=== PATIENT | female | born 1990 | race Caucasian/White ===

== ENCOUNTER 2017-04-05 11:22 | Observation (INO) | payer MEDICAID, SELFPAY ==
[2017-04-05 11:52] VITALS: BMI 21.3
--- NOTE | 2017-04-05 12:21 | HP.PCM_ITS ---
Problem List (1) Opioid withdrawal Status: Acute (2) Benzodiazepine withdrawal Status: Acute (3) Poly-drug misuser Status: Chronic History of Present Illness Date of Admission: 04/05/17 Chief Complaint: Cramps in the lower extremities, opiate withdrawal The patient is a 27 year old female with no significant past medical history who comes in with complaints of cramps in lower extremity to be admitted under the [facility] program for opiate withdrawal. Patient last used heroine IV on 04/04/2017 and use benzodiazepine on 04/03/2017. Started using IV heroin when she was 16 years old. Has been multiple programs without success. She denies any fever or chills. Denies abdominal cramps but has cramps in the lower extremity. 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 Dyspnea Respiratory: Denies: Cough, Hemoptysis, Pleuritic Pain, Shortness of Breath, Shortness of breath at rest, Shortness of breath upon exertion, Sputum production Gastrointestinal: Denies: Abdominal Pain, Constipation, Hematemesis, Nausea, Vomiting Genitourinary: Denies: Dysuria, Frequency, Incontinence Musculoskeletal: Reports: Muscle pain - cramps in the legs. Denies: Joint Pain , Joint stiffness, Joint swelling, Joint Tenderness Skin: Denies: Rash, Wounds Neurological: Denies: Numbness, Tingling, Focal weakness Psychiatric: Denies: Anxiety, Depression, Homicidal Ideations, Suicidal Ideations Hematologic/ Lymphatic: Denies: Easy Bruising, Easy Bleeding VTE Information - Inpt Only VTE Present on Admission: No VTE Pharm Prophylaxis ordered?: No Patient Problems: Active and Suspected Problems Opioid withdrawal (Acute) Benzodiazepine withdrawal (Acute) Anxiety and depression (Acute) - Physical Exam General: Alert, Oriented x3, Cooperative, No apparent distress HEENT: Atraumatic, PERRLA, EOMI, Normocephalic Oral: Moist Mucosa Neck: Supple Lungs: Clear to auscultation, Normal air movement Cardiovascular: Regular rate, Regular Rhythm, Normal S1, Normal S2, No murmurs Abdomen: Bowel Sounds Present, Soft, Non Tender, Non-Distended, No Hepato- splenomegaly Extremities: No edema Skin: No rashes, No breakdown Musculoskeletal: No Tenderness to Palpation of Joints or Extremities Lymphatic: No Cervical, Supraclavicular, or Inguinal Adenopathy Neurological: Cranial nerves II-XII grossly intact, Neuro grossly intact Psych/Mental Status: Normal Affect, Appropriate Weight: 51.2 kg Body Mass Index (BMI) 21.3 Assessment/Plan Active and Suspected Problems Opioid withdrawal (Acute) Benzodiazepine withdrawal (Acute) Anxiety and depression (Acute) 27 y/o female with hx of chronic heroin use disorder, benzo use disorder, nicotine use comes in with complains of bilateral leg cramps with use of heroin 2 days ago 1. Opiate withdrawal in a known heroin user, undergoing medical stabilization under the [facility] program Plan: Admit patient to the [facility] floor, continue to monitor patient per protocol 2. Polysubstance use including benzodiazepines, nicotine, patient refuses nicotine patch 3. DVT Prophylaxis with early ambulation Code Visit Inpatient E&M: 03946 Init Hosp L2
--- NOTE | 2017-04-05 12:32 | NURSING ---
SPOKE WITH [facility] IN RX-THERE IS NOTHING IN ACCUDOSE FOR PT ADMINISTRATION-ASKED THEM TO EXPEDITE PROCESS BECAUSE PT IS SYMPTOMATIC
[2017-04-05] MEDS: Buprenorphine HCl 2 MG TAB.SUBL SL ×2 (12:43→21:24)
[2017-04-05] MEDS: chlordiazePOXIDE 25 MG Capsule PO ×3 (12:43→18:48)
[2017-04-05 13:28] LABS: Hematocrit 42.4 % (37-47); Hemoglobin 14.1 g/dl (12.0-15.0); Red Blood Count 4.62 M/mm3 (4.2-5.4); White Blood Count 6.2 K/mm3 (4.4-11.0)
[2017-04-05 13:29] LABS: Absolute Lymphocyte Count 1.24 X10^3/ul (0.83-4.51); Absolute Neutrophil Count 4.6 X10^3/uL (2.0-7.7); Basophil# 0.02 X10^3/uL; Basophil% 0.3 % (0-1); Eosinophil# 0.16 X10^3/uL; Eosinophils% 2.6 % (0-5); Lymphocyte # 1.24 X10^3/ul (4.0); Mean Corp Hgb Conc 33.3 g/gl (32-36); Mean Corpuscular Hgb 30.5 pg (27.0-32.0); Mean Corpuscular Volume 91.8 fL (81-99); Mean Platelet Vol. 9.1 fl (6.2-12.0); Monocyte# 0.19 X10^3/uL; Monocyte% 3.1 % (0-10); Neutrophil # 4.58 X10^3/uL (2.7-7.7); Neutrophil % 73.8 % (47-70); Platelet Count 181 K/mm3 (150-450); RBC Distribution Width CV 13.3 % (11.6-14.6); RBC Distribution Width SD 44.2 fl (35.1-43.9)
[2017-04-05 13:31] LABS: POSITIVE COUNT NO; POSITIVE DIFFERENTIAL NO; POSITIVE MORPHOLOGY NO
[2017-04-05 13:49] LABS: ALB/GLOB Ratio 0.9 RATIO (0.9-2.4); AST(SGOT) 33 U/L (15-37); Alanine Aminotransfer ALT/SGPT 39 U/L (12-78); Albumin, Serum 3.8 g/dL (3.4-5.0); Alkaline Phosphatase 106 U/L (45-117); Anion Gap 8 (5-15); BUN 6 mg/dL (7-18); BUN/Creat Ratio 8.5 RATIO (10-20); Calcium,Total 9.4 mg/dL (8.5-10.1); Chloride 109 mmol/L (98-107); EST Glomerular Filtration Rate 108 mL/min (>60); Est Glom Filt Rate - Afr Amer 130 mL/min (>60); Estimated Creatinine Clearance 92.71 ml/min; Globulin 4.3 g/dL (2.2-4.2); Glucose 117 mg/dL (70-110); Potassium 4.1 mmol/L (3.5-5.1); Protein, Total 8.1 g/dL (6.4-8.2); Sodium Level 142 mmol/L (136-145)
[2017-04-05 14:58] VITALS: BP 126/74; PULSE 93; RESP 18; TEMP 36.7
--- NOTE | 2017-04-05 15:51 | CHAPLAIN ---
Type of Pastoral Visit _x__ Initial Visit ___ Follow-up Visit ___ On-call Visit ___ General Patient Visit ___ Spiritual Assessment ___ Family Conference ___ Bereavement ___ Rapid Response ___ Code Blue ___ Other (describe below) Pastoral Care Referral From _x__ Patient ___ Family ___ Nurse ___ Physician ___ Gamma Facilities Operator ___ Network Relations Consultant ___ Other (describe below) Sacrament/Intervention _x__ Active listening ___ Anointing ___ Pentecostal ___ Bereavement ___ Communion ___ Nikky exploration ___ _x__ Life review _x__ Prayer ___ Reconciliation ___ Sacrament of Sick _x__ Supportive presence ___ Wedding ___ Other (describe below) Pastoral Comments patient support is her boyfriend (who is in assisted) and his family; pt is not from this area and her mother is and father is inactive in her life; patient wanted paper to write a letter to her boyfriend; brought her paper and envelopes
[2017-04-05] MEDS: Methocarbamol 750 MG Tablet PO (16:28)
[2017-04-05 16:33] LABS: Mucous, Urine 0 SEEN /hpf (<or=2+); Red Blood Cells-Urine 0 SEEN /hpf (0-5); White Blood Cells 0 SEEN /hpf (0-5)
[2017-04-05 16:36] LABS: Color, Urine Yellow (Yellow); Glucose, Dipstick Normal (Normal); Ketone-Dipstick Negative (Negative); Leukocyte Esterase-Dipstick Negative /ul (Negative); Nitrite-Dipstick Negative (Negative); Occult Blood-Urine Negative /ul (Negative); Protein-Dipstick Negative (Negative); Urine Bilirubin Dipstick Negative (Negative); Urine Clarity Clear (Clear); Urine Urobilinogen Normal (Normal)
[2017-04-05 16:43] VITALS: BP 101/69; PULSE 98; RESP 20; TEMP 36.7; TEMP 37.1; O2SAT 100
[2017-04-05 16:46] LABS: Bacteria 1+ /hpf (None Seen); Squamous Epithelial Cells - UA 5-10 SEEN /hpf (5-10)
[2017-04-05 18:00] VITALS: BP 132/77; PULSE 99; RESP 20; TEMP 36.7; O2SAT 99
[2017-04-05] MEDS: QUEtiapine 25 MG Tablet PO (18:49)
[2017-04-05 21:07] VITALS: BP 93/59; PULSE 87; RESP 18; TEMP 36.7
[2017-04-05 21:10] VITALS: O2SAT 98
[2017-04-05] MEDS: traZODone 50 MG Tablet PO (21:19)
[2017-04-05] MEDS: cloNIDine HCl 0.1 MG Tablet PO (21:20)
[2017-04-05] MEDS: Pramipexole Di-HCl 0.25 MG Tablet PO (21:21)
[2017-04-06] MEDS: Acetaminophen 325 MG Tablet 650 MG PO (00:50)
[2017-04-06] MEDS: chlordiazePOXIDE 25 MG Capsule PO ×4 (00:51→23:02)
[2017-04-06 02:00] VITALS: BP 82/54; PULSE 69; RESP 16; TEMP 36.4; O2SAT 99
[2017-04-06] MEDS: Buprenorphine HCl 2 MG TAB.SUBL SL ×3 (05:01→21:12)
[2017-04-06 06:00] VITALS: BP 82/49; PULSE 71; RESP 18; TEMP 36.4; O2SAT 99
[2017-04-06 08:02] LABS: Absolute Lymphocyte Count 2.25 X10^3/ul (0.83-4.51); Absolute Neutrophil Count 4.2 X10^3/uL (2.0-7.7); Basophil# 0.04 X10^3/uL; Basophil% 0.5 % (0-1); Eosinophil# 0.23 X10^3/uL; Eosinophils% 3.2 % (0-5); Lymphocyte # 2.25 X10^3/ul (4.0); Lymphocyte % 30.9 % (19-41); Mean Corp Hgb Conc 34.2 g/gl (32-36); Mean Corpuscular Hgb 31.6 pg (27.0-32.0); Mean Corpuscular Volume 92.2 fL (81-99); Mean Platelet Vol. 9.2 fl (6.2-12.0); Monocyte# 0.52 X10^3/uL; Monocyte% 7.1 % (0-10); Neutrophil # 4.23 X10^3/uL (2.7-7.7); Neutrophil % 58.2 % (47-70); Platelet Count 190 K/mm3 (150-450); RBC Distribution Width CV 13.2 % (11.6-14.6); RBC Distribution Width SD 43.8 fl (35.1-43.9); Red Blood Count 4.12 M/mm3 (4.2-5.4); White Blood Count 7.3 K/mm3 (4.4-11.0)
[2017-04-06 08:09] LABS: POSITIVE COUNT NO; POSITIVE DIFFERENTIAL NO; POSITIVE MORPHOLOGY NO
[2017-04-06 08:18] LABS: Anion Gap 6 (5-15); BUN 10 mg/dL (7-18); BUN/Creat Ratio 15.5 RATIO (10-20); Calcium,Total 8.9 mg/dL (8.5-10.1); Chloride 108 mmol/L (98-107); Creatinine, Serum 0.64 mg/dL (0.55-1.02); EST Glomerular Filtration Rate 119 mL/min (>60); Est Glom Filt Rate - Afr Amer 144 mL/min (>60); Glucose 97 mg/dL (70-110); Potassium 3.7 mmol/L (3.5-5.1); Sodium Level 140 mmol/L (136-145)
[2017-04-06 10:00] VITALS: BP 89/57; PULSE 88; RESP 18; TEMP 36.6
--- NOTE | 2017-04-06 11:40 | PCM.PN.HOSP ---
Patient Problems: Active and Suspected Problems Opioid withdrawal (Acute) Benzodiazepine withdrawal (Acute) Anxiety and depression (Acute) Subjective: Patient was seen and examined. No new complains. No more having cramps. Objective: Physical Exam General: Alert, Oriented x3, Cooperative, No apparent distress HEENT: Atraumatic, PERRLA, EOMI, Normocephalic Oral: Moist Mucosa Neck: Supple Lungs: Clear to auscultation, Normal air movement Cardiovascular: Regular rate, Regular Rhythm, Normal S1, Normal S2, No murmurs Abdomen: Bowel Sounds Present, Soft, Non Tender, Non-Distended, No Hepato-splenomegaly Extremities: No edema Skin: No rashes, No breakdown Musculoskeletal: No Tenderness to Palpation of Joints or Extremities Lymphatic: No Cervical, Supraclavicular, or Inguinal Adenopathy Neurological: Cranial nerves II-XII grossly intact, Neuro grossly intact Psych/Mental Status: Normal Affect, Appropriate Vitals/I&O's: Vital Signs Temp Pulse Resp BP Pulse Ox 97.6 F L 71 18 82/49 L 99 04/06/17 06:00 04/06/17 06:00 04/06/17 06:00 04/06/17 06:00 04/06/17 06:00 Oxygen Delivery Method Room Air Weight: 51.2 kg Body Mass Index (BMI) 21.3 Intake and Output for Last 24 Hours 04/04/17 04/05/17 04/06/17 23:59 23:59 23:59 Intake Total 800 / 800 Balance 800 / 800 Laboratory Results 04/05/17 13:00: WBC 6.2, RBC 4.62, Hgb 14.1, Hct 42.4, MCV 91.8, MCH 30.5, MCHC 33.3, RDW 13.3, RDW Differential 44.2 H, Plt Count 181, MPV 9.1, Immature Gran % (Auto) 0.200, Neut % (Auto) 73.8 H, Lymph % (Auto) 20.0, [place] % (Auto) 3.1, Eos % (Auto) 2.6, Baso % (Auto) 0.3, Absolute Neuts (auto) 4.6, Absolute Lymphs (auto) 1.24, Total Counted Not Reportable 04/05/17 13:00: Sodium 142, Potassium 4.1, Chloride 109 H, Carbon Dioxide 25.0, Anion Gap 8, BUN 6 L, Creatinine 0.70, Estim Creat Clear Calc 92.71, Est GFR (MDRD) Af Amer 130, Est GFR (MDRD) Non-Af 108, BUN/Creatinine Ratio 8.5 L, Glucose 117 H, Calcium 9.4, Total Bilirubin 0.40, AST 33, ALT 39, Alkaline Phosphatase 106, Total Protein 8.1, Albumin 3.8, Globulin 4.3 H, Albumin/Globulin Ratio 0.9 04/05/17 16:01: Urine Color Yellow, Urine Clarity Clear, Urine pH 8.0, Ur Specific [place] 1.010, Urine Protein Negative, Urine Glucose (UA) Normal, Urine Ketones Negative, Urine Occult Blood Negative, Urine Nitrite Negative, Urine Bilirubin Negative, Urine Urobilinogen Normal, Ur Leukocyte Esterase Negative, Urine RBC 0 SEEN, Urine WBC 0 SEEN, Ur Squamous Epith Cells 5-10 SEEN, Urine Bacteria 1+, Urine Mucus 0 SEEN 04/06/17 07:30: WBC 7.3, RBC 4.12 L, Hgb 13.0, Hct 38.0, MCV 92.2, MCH 31.6, MCHC 34.2, RDW 13.2, RDW Differential 43.8, Plt Count 190, MPV 9.2, Immature Gran % (Auto) 0.100, Neut % (Auto) 58.2, Lymph % (Auto) 30.9, [place] % (Auto) 7.1, Eos % (Auto) 3.2, Baso % (Auto) 0.5, Absolute Neuts (auto) 4.2, Absolute Lymphs (auto) 2.25, Total Counted Not Reportable 04/06/17 07:30: Sodium 140, Potassium 3.7, Chloride 108 H, Carbon Dioxide 26.0, Anion Gap 6, BUN 10, Creatinine 0.64, Estim Creat Clear Calc 101.40, Est GFR (MDRD) Af Amer 144, Est GFR (MDRD) Non-Af 119, BUN/Creatinine Ratio 15.5, Glucose 97, Calcium 8.9 Current Medications Acetaminophen (Tylenol) 650 mg PO Q4H PRN PRN PRN Reason: PAIN Last Admin: 04/06/17 00:50 Dose: 650 mg Buprenorphine HCl (Buprenorphine Hcl) 4 mg SL Q8H [facility] PRN Reason: Taper Stop: 04/08/17 16:44 Last Admin: 04/06/17 05:01 Dose: 4 mg Chlordiazepoxide (Librium) 25 mg PO Q6H PRN PRN PRN Reason: Anxiety Score 2-3/3 Last Admin: 04/05/17 16:28 Dose: 25 mg Chlordiazepoxide (Librium) 50 mg PO Q8H [facility] PRN Reason: Taper Stop: 04/08/17 14:44 Last Admin: 04/06/17 06:35 Dose: 50 mg Clonidine (Catapres) 0.1 mg PO Q2H PRN PRN PRN Reason: Hot/Cold Sweats or Anxiety Last Admin: 04/05/17 21:20 Dose: 0.1 mg Dicyclomine HCl (Bentyl) 20 mg PO Q6H PRN PRN PRN Reason: Abdomnial Discomfort Hydroxyzine HCl (Vistaril) 50 mg IM Q6H PRN PRN PRN Reason: Breakthrough Anxiety Hydroxyzine Pamoate (Vistaril) 50 mg PO Q6H PRN PRN PRN Reason: Mild Anxiety (score 1/3) Magnesium Hydroxide (Milk Of Magnesia) 30 ml PO DAILY PRN PRN PRN Reason: Constipation Methocarbamol (Methocarbamol) 750 mg PO Q6H PRN PRN PRN Reason: Muscle Aches Last Admin: 04/05/17 16:28 Dose: 750 mg Nicotine (Nicoderm Cq (Pbkc)) 21 mg TRANSDERM. DAILY [facility] Last Admin: 04/05/17 21:04 Dose: Not Given Nutritional Formula (Lactose Free) (Ensure Enlive) 120 ml PO 4X/DAY [facility] Last Admin: 04/05/17 21:20 Dose: Not Given Pramipexole Dihydrochloride (Mirapex) 0.25 mg PO Q12H PRN PRN PRN Reason: Restless Legs Last Admin: 04/05/17 21:21 Dose: 0.25 mg Psyllium Hydrophilic Mucilloid (Metamucil) 1 packet PO DAILY PRN PRN PRN Reason: CONSTIPATION Quetiapine Fumarate (Seroquel) 100 mg PO QHS [facility] Senna/Docusate Sodium (Senokot-S, Agnieszka-Colace) 2 tablet PO BID [facility] Last Admin: 04/05/17 21:20 Dose: Not Given Trazodone HCl (Desyrel) 50 mg PO QHS [facility] Last Admin: 04/05/17 21:19 Dose: 50 mg Assessment/Plan Active and Suspected Problems Opioid withdrawal (Acute) Benzodiazepine withdrawal (Acute) Anxiety and depression (Acute) 27 y/o female with hx of chronic heroin use disorder, benzo use disorder, nicotine use comes in with complains of bilateral leg cramps with use of heroin 2 days ago 1. Opiate withdrawal in a known heroin user, undergoing medical stabilization under the [facility] program, stable vitals. 2. Polysubstance use including benzodiazepines, nicotine, on nicotine patch 3. DVT Prophylaxis with early ambulation Code Visit Inpatient E&M: 12713 Subs Hosp L2
--- NOTE | 2017-04-06 11:48 | PN_ITS ---
Patient Problems: Active and Suspected Problems Opioid withdrawal (Acute) Benzodiazepine withdrawal (Acute) Anxiety and depression (Acute) Subjective: Patient was seen and examined. No new complains. No more having cramps. Objective: Physical Exam General: Alert, Oriented x3, Cooperative, No apparent distress HEENT: Atraumatic, PERRLA, EOMI, Normocephalic Oral: Moist Mucosa Neck: Supple Lungs: Clear to auscultation, Normal air movement Cardiovascular: Regular rate, Regular Rhythm, Normal S1, Normal S2, No murmurs Abdomen: Bowel Sounds Present, Soft, Non Tender, Non-Distended, No Hepato- splenomegaly Extremities: No edema Skin: No rashes, No breakdown Musculoskeletal: No Tenderness to Palpation of Joints or Extremities Lymphatic: No Cervical, Supraclavicular, or Inguinal Adenopathy Neurological: Cranial nerves II-XII grossly intact, Neuro grossly intact Psych/Mental Status: Normal Affect, Appropriate Vitals/I&O's: Vital Signs Temp Pulse Resp BP Pulse Ox 97.6 F L 71 18 82/49 L 99 04/06/17 06:00 04/06/17 06:00 04/06/17 06:00 04/06/17 06:00 04/06/17 06:00 Oxygen Delivery Method Room Air Weight: 51.2 kg Body Mass Index (BMI) 21.3 Intake and Output for Last 24 Hours 04/04/17 04/05/17 04/06/17 23:59 23:59 23:59 Intake Total 800 / 800 Balance 800 / 800 Laboratory Results 04/05/17 13:00: WBC 6.2, RBC 4.62, Hgb 14.1, Hct 42.4, MCV 91.8, MCH 30.5, MCHC 33.3, RDW 13.3, RDW Differential 44.2 H, Plt Count 181, MPV 9.1, Immature Gran % (Auto) 0.200, Neut % (Auto) 73.8 H, Lymph % (Auto) 20.0, [place] % (Auto) 3.1, Eos % (Auto) 2.6, Baso % (Auto) 0.3, Absolute Neuts (auto) 4.6, Absolute Lymphs (auto) 1.24, Total Counted Not Reportable 04/05/17 13:00: Sodium 142, Potassium 4.1, Chloride 109 H, Carbon Dioxide 25.0, Anion Gap 8, BUN 6 L, Creatinine 0.70, Estim Creat Clear Calc 92.71, Est GFR ( MDRD) Af Amer 130, Est GFR (MDRD) Non-Af 108, BUN/Creatinine Ratio 8.5 L, Glucose 117 H, Calcium 9.4, Total Bilirubin 0.40, AST 33, ALT 39, Alkaline Phosphatase 106, Total Protein 8.1, Albumin 3.8, Globulin 4.3 H, Albumin/ Globulin Ratio 0.9 04/05/17 16:01: Urine Color Yellow, Urine Clarity Clear, Urine pH 8.0, Ur Specific [place] 1.010, Urine Protein Negative, Urine Glucose (UA) Normal, Urine Ketones Negative, Urine Occult Blood Negative, Urine Nitrite Negative, Urine Bilirubin Negative, Urine Urobilinogen Normal, Ur Leukocyte Esterase Negative, Urine RBC 0 SEEN, Urine WBC 0 SEEN, Ur Squamous Epith Cells 5-10 SEEN , Urine Bacteria 1+, Urine Mucus 0 SEEN 04/06/17 07:30: WBC 7.3, RBC 4.12 L, Hgb 13.0, Hct 38.0, MCV 92.2, MCH 31.6, MCHC 34.2, RDW 13.2, RDW Differential 43.8, Plt Count 190, MPV 9.2, Immature Gran % (Auto) 0.100, Neut % (Auto) 58.2, Lymph % (Auto) 30.9, [place] % (Auto) 7.1 , Eos % (Auto) 3.2, Baso % (Auto) 0.5, Absolute Neuts (auto) 4.2, Absolute Lymphs (auto) 2.25, Total Counted Not Reportable 04/06/17 07:30: Sodium 140, Potassium 3.7, Chloride 108 H, Carbon Dioxide 26.0, Anion Gap 6, BUN 10, Creatinine 0.64, Estim Creat Clear Calc 101.40, Est GFR ( MDRD) Af Amer 144, Est GFR (MDRD) Non-Af 119, BUN/Creatinine Ratio 15.5, Glucose 97, Calcium 8.9 Current Medications Acetaminophen (Tylenol) 650 mg PO Q4H PRN PRN PRN Reason: PAIN Last Admin: 04/06/17 00:50 Dose: 650 mg Buprenorphine HCl (Buprenorphine Hcl) 4 mg SL Q8H [facility] PRN Reason: Taper Stop: 04/08/17 16:44 Last Admin: 04/06/17 05:01 Dose: 4 mg Chlordiazepoxide (Librium) 25 mg PO Q6H PRN PRN PRN Reason: Anxiety Score 2-3/3 Last Admin: 04/05/17 16:28 Dose: 25 mg Chlordiazepoxide (Librium) 50 mg PO Q8H [facility] PRN Reason: Taper Stop: 04/08/17 14:44 Last Admin: 04/06/17 06:35 Dose: 50 mg Clonidine (Catapres) 0.1 mg PO Q2H PRN PRN PRN Reason: Hot/Cold Sweats or Anxiety Last Admin: 04/05/17 21:20 Dose: 0.1 mg Dicyclomine HCl (Bentyl) 20 mg PO Q6H PRN PRN PRN Reason: Abdomnial Discomfort Hydroxyzine HCl (Vistaril) 50 mg IM Q6H PRN PRN PRN Reason: Breakthrough Anxiety Hydroxyzine Pamoate (Vistaril) 50 mg PO Q6H PRN PRN PRN Reason: Mild Anxiety (score 1/3) Magnesium Hydroxide (Milk Of Magnesia) 30 ml PO DAILY PRN PRN PRN Reason: Constipation Methocarbamol (Methocarbamol) 750 mg PO Q6H PRN PRN PRN Reason: Muscle Aches Last Admin: 04/05/17 16:28 Dose: 750 mg Nicotine (Nicoderm Cq (Pbkc)) 21 mg TRANSDERM. DAILY [facility] Last Admin: 04/05/17 21:04 Dose: Not Given Nutritional Formula (Lactose Free) (Ensure Enlive) 120 ml PO 4X/DAY [facility] Last Admin: 04/05/17 21:20 Dose: Not Given Pramipexole Dihydrochloride (Mirapex) 0.25 mg PO Q12H PRN PRN PRN Reason: Restless Legs Last Admin: 04/05/17 21:21 Dose: 0.25 mg Psyllium Hydrophilic Mucilloid (Metamucil) 1 packet PO DAILY PRN PRN PRN Reason: CONSTIPATION Quetiapine Fumarate (Seroquel) 100 mg PO QHS [facility] Senna/Docusate Sodium (Senokot-S, Agnieszka-Colace) 2 tablet PO BID [facility] Last Admin: 04/05/17 21:20 Dose: Not Given Trazodone HCl (Desyrel) 50 mg PO QHS [facility] Last Admin: 04/05/17 21:19 Dose: 50 mg Assessment/Plan Active and Suspected Problems Opioid withdrawal (Acute) Benzodiazepine withdrawal (Acute) Anxiety and depression (Acute) 27 y/o female with hx of chronic heroin use disorder, benzo use disorder, nicotine use comes in with complains of bilateral leg cramps with use of heroin 2 days ago 1. Opiate withdrawal in a known heroin user, undergoing medical stabilization under the [facility] program, stable vitals. 2. Polysubstance use including benzodiazepines, nicotine, on nicotine patch 3. DVT Prophylaxis with early ambulation Code Visit Inpatient E&M: 40306 Subs Hosp L2
[2017-04-06] MEDS: Senna/Docusate Sodium 1 Tablet 2 TABLET PO (12:21)
[2017-04-06 14:00] VITALS: BP 92/62; PULSE 80; RESP 18; TEMP 36.3
[2017-04-06] MEDS: QUEtiapine 100 MG Tablet PO (21:13)
[2017-04-06] MEDS: Pramipexole Di-HCl 0.25 MG Tablet PO (21:17)
[2017-04-06 21:21] VITALS: BP 98/54; PULSE 73; RESP 16; TEMP 36.7
[2017-04-07] MEDS: Buprenorphine HCl 2 MG TAB.SUBL SL ×2 (05:52→17:21)
[2017-04-07] MEDS: chlordiazePOXIDE 25 MG Capsule PO ×3 (05:53→21:48)
[2017-04-07 05:56] VITALS: BP 90/53; PULSE 69; RESP 16; TEMP 36.6
--- NOTE | 2017-04-07 08:06 | PCM.PN.HOSP ---
Patient Problems: Active and Suspected Problems Opioid withdrawal (Acute) Benzodiazepine withdrawal (Acute) Anxiety and depression (Acute) Subjective: Patient was seen and examined. No new complaints. No acute events overnight Objective: Physical Exam General: Alert, Oriented x3, Cooperative, No apparent distress HEENT: Atraumatic, PERRLA, EOMI, Normocephalic Oral: Moist Mucosa Neck: Supple Lungs: Clear to auscultation, Normal air movement Cardiovascular: Regular rate, Regular Rhythm, Normal S1, Normal S2, No murmurs Abdomen: Bowel Sounds Present, Soft, Non Tender, Non-Distended, No Hepato-splenomegaly Extremities: No edema Skin: No rashes, No breakdown Musculoskeletal: No Tenderness to Palpation of Joints or Extremities Lymphatic: No Cervical, Supraclavicular, or Inguinal Adenopathy Neurological: Cranial nerves II-XII grossly intact, Neuro grossly intact Psych/Mental Status: Normal Affect, Appropriate Vitals/I&O's: Vital Signs Temp Pulse Resp BP Pulse Ox 97.8 F 69 16 90/53 L 99 04/07/17 05:56 04/07/17 05:56 04/07/17 05:56 04/07/17 05:56 04/06/17 06:00 Oxygen Delivery Method Room Air Weight: 51.2 kg Body Mass Index (BMI) 21.3 Intake and Output for Last 24 Hours 04/05/17 04/06/17 04/07/17 23:59 23:59 23:59 Intake Total 800 / 800 Balance 800 / 800 Laboratory Results 04/06/17 07:30: WBC 7.3, RBC 4.12 L, Hgb 13.0, Hct 38.0, MCV 92.2, MCH 31.6, MCHC 34.2, RDW 13.2, RDW Differential 43.8, Plt Count 190, MPV 9.2, Immature Gran % (Auto) 0.100, Neut % (Auto) 58.2, Lymph % (Auto) 30.9, [place] % (Auto) 7.1, Eos % (Auto) 3.2, Baso % (Auto) 0.5, Absolute Neuts (auto) 4.2, Absolute Lymphs (auto) 2.25, Total Counted Not Reportable 04/06/17 07:30: Sodium 140, Potassium 3.7, Chloride 108 H, Carbon Dioxide 26.0, Anion Gap 6, BUN 10, Creatinine 0.64, Estim Creat Clear Calc 101.40, Est GFR (MDRD) Af Amer 144, Est GFR (MDRD) Non-Af 119, BUN/Creatinine Ratio 15.5, Glucose 97, Calcium 8.9 Current Medications Acetaminophen (Tylenol) 650 mg PO Q4H PRN PRN PRN Reason: PAIN Last Admin: 04/06/17 00:50 Dose: 650 mg Buprenorphine HCl (Buprenorphine Hcl) 2 mg SL Q12H [facility] PRN Reason: Taper Stop: 04/08/17 16:44 Last Admin: 04/07/17 05:52 Dose: 2 mg Chlordiazepoxide (Librium) 25 mg PO Q6H PRN PRN PRN Reason: Anxiety Score 2-3/3 Last Admin: 04/05/17 16:28 Dose: 25 mg Chlordiazepoxide (Librium) 50 mg PO Q8H [facility] PRN Reason: Taper Stop: 04/08/17 14:44 Last Admin: 04/07/17 05:53 Dose: 50 mg Clonidine (Catapres) 0.1 mg PO Q2H PRN PRN PRN Reason: Hot/Cold Sweats or Anxiety Last Admin: 04/05/17 21:20 Dose: 0.1 mg Dicyclomine HCl (Bentyl) 20 mg PO Q6H PRN PRN PRN Reason: Abdomnial Discomfort Hydroxyzine HCl (Vistaril) 50 mg IM Q6H PRN PRN PRN Reason: Breakthrough Anxiety Hydroxyzine Pamoate (Vistaril) 50 mg PO Q6H PRN PRN PRN Reason: Mild Anxiety (score 1/3) Last Admin: 04/06/17 12:22 Dose: 50 mg Magnesium Hydroxide (Milk Of Magnesia) 30 ml PO DAILY PRN PRN PRN Reason: Constipation Methocarbamol (Methocarbamol) 750 mg PO Q6H PRN PRN PRN Reason: Muscle Aches Last Admin: 04/05/17 16:28 Dose: 750 mg Nicotine (Nicoderm Cq (Pbkc)) 21 mg TRANSDERM. DAILY [facility] Last Admin: 04/06/17 12:21 Dose: Not Given Nutritional Formula (Lactose Free) (Ensure Enlive) 120 ml PO 4X/DAY [facility] Last Admin: 04/06/17 21:12 Dose: Not Given Pramipexole Dihydrochloride (Mirapex) 0.25 mg PO Q12H PRN PRN PRN Reason: Restless Legs Last Admin: 04/06/17 21:17 Dose: 0.25 mg Psyllium Hydrophilic Mucilloid (Metamucil) 1 packet PO DAILY PRN PRN PRN Reason: CONSTIPATION Quetiapine Fumarate (Seroquel) 100 mg PO QHS [facility] Last Admin: 04/06/17 21:13 Dose: 100 mg Senna/Docusate Sodium (Senokot-S, Agnieszka-Colace) 2 tablet PO BID [facility] Last Admin: 04/06/17 21:12 Dose: Not Given Trazodone HCl (Desyrel) 50 mg PO QHS [facility] Last Admin: 04/06/17 21:12 Dose: Not Given Assessment/Plan Active and Suspected Problems Opioid withdrawal (Acute) Benzodiazepine withdrawal (Acute) Anxiety and depression (Acute) 27 y/o female with hx of chronic heroin use disorder, benzo use disorder, nicotine use comes in with complains of bilateral leg cramps, last use of heroin 2 days prior to admission, being managed under [facility] protocol. 1. Opiate withdrawal in a known heroin user, undergoing medical stabilization under the [facility] program, stable vitals. 2. Polysubstance use including benzodiazepines, nicotine, on nicotine patch 3. DVT Prophylaxis with early ambulation Code Visit Inpatient E&M: 13265 Subs Hosp L2
[2017-04-07 09:30] VITALS: BP 88/46; PULSE 71; RESP 16; TEMP 36.4; O2SAT 99
--- NOTE | 2017-04-07 12:38 | NURSING ---
MESSAGE LEFT WITH NEW VISIONS REGARDING PATIENTS CONCERN WITH DISCHARGE PLANS. PATIENT PLANNING ON GOING TO [place] FOR INPATIENT THERAPY AT DISCHARGE. WILL NEED TRANSPORTATION TO [facility].
[2017-04-07] MEDS: Pramipexole Di-HCl 0.25 MG Tablet PO (14:35)
[2017-04-07 14:40] VITALS: BP 95/68; PULSE 91; RESP 18; TEMP 36.8
[2017-04-07 17:25] VITALS: BP 101/70; PULSE 81; RESP 18; TEMP 36.6
[2017-04-07] MEDS: QUEtiapine 100 MG Tablet PO (21:50)
[2017-04-07 21:55] VITALS: BP 96/74; PULSE 99; RESP 16; TEMP 36.6
[2017-04-08 06:00] VITALS: BP 87/56; PULSE 68; RESP 15; TEMP 36.4
[2017-04-08] MEDS: Buprenorphine HCl 2 MG TAB.SUBL SL (06:10)
[2017-04-08] MEDS: chlordiazePOXIDE 25 MG Capsule PO (06:11)
[2017-04-08] MEDS: Pramipexole Di-HCl 0.25 MG Tablet PO (06:15)
[2017-04-08 08:55] VITALS: BP 98/63; PULSE 90; RESP 18; TEMP 36.7
[2017-04-08 08:56] VITALS: PULSE 90
--- NOTE | 2017-04-08 09:41 | NURSING ---
Patient was out to nurses' station requesting to be d/c'ed and requesting for this RN to call Jennifer and schedule her a ride to her home [address] [place] [address]. She states she attempted to call in and they notified her she must have an RN call. This RN called and spoke with Shmuel at this time and was given a confirmation number: [phone]. Notified her that doctor states that she plans to d/c her around 11am. This RN gave cell phone number here at work and requested call when ride arrives.
--- NOTE | 2017-04-08 10:21 | PCM.DC ---
- Discharge Diagnoses Current Active Problems: Current Active and Chronic Problems Opioid withdrawal (Acute) Benzodiazepine withdrawal (Acute) Anxiety and depression (Acute) Poly-drug misuser (Chronic) You will use the following diet at home:: No restrictions Your food should be the consistency of: Regular Your liquids should be the consistency of: Regular/Thin Discharge Activity: Return to Normal Activity Call your doctor if you observe: Fever of 101 or Higher, Shortness of breath, - - cough, nausea, diarrhea Additional Instructions: Safe travels and Good luck in your ongoing effort to stay clean. Allergies/Adverse Reactions: Allergies No Known Allergies Allergy (Verified 04/05/17 12:31) Medications to take at Discharge Quetiapine Fumarate [Seroquel] 100 mg PO QHS #30 tab 04/08/17 The following prescriptions were given: Quetiapine Fumarate [Seroquel] 100 mg PO QHS #30 tab Primary Care Physician: Care Physician,No Primary [Primary Care Provider] - Proposed Discharge Date: 04/08/17
--- NOTE | 2017-04-08 10:31 | PCM.DC.SUM ---
Discharge Date and Diagnosis - Problem List Patient Problems: Active and Suspected Problems Opioid withdrawal (Acute) Benzodiazepine withdrawal (Acute) Anxiety and depression (Acute) Date of Admission: 04/05/17 Date of Discharge: 04/08/17 - Primary Discharge Diagnosis Active and Suspected Problems Opioid withdrawal (Acute) Benzodiazepine withdrawal (Acute) - Secondary Discharge Diagnosis Chronic Problems Insomnia (Chronic) Nicotine dependence (Chronic) Poly-drug misuser (Chronic) Anxiety and depression (Acute) Hospital Course and Treatment Imaging Results: Laboratory Tests 04/05/17 04/05/17 04/05/17 13:00 13:00 16:01 WBC 6.2 RBC 4.62 Hgb 14.1 Hct 42.4 MCV 91.8 MCH 30.5 MCHC 33.3 RDW 13.3 RDW Differential 44.2 H Plt Count 181 MPV 9.1 Immature Gran % (Auto) 0.200 Neut % (Auto) 73.8 H Lymph % (Auto) 20.0 [place] % (Auto) 3.1 Eos % (Auto) 2.6 Baso % (Auto) 0.3 Absolute Neuts (auto) 4.6 Absolute Lymphs (auto) 1.24 Total Counted Not Reportable Sodium 142 Potassium 4.1 Chloride 109 H Carbon Dioxide 25.0 Anion Gap 8 BUN 6 L Creatinine 0.70 Estim Creat Clear Calc 92.71 Est GFR (MDRD) Af Amer 130 Est GFR (MDRD) Non-Af 108 BUN/Creatinine Ratio 8.5 L Glucose 117 H Calcium 9.4 Total Bilirubin 0.40 AST 33 ALT 39 Alkaline Phosphatase 106 Total Protein 8.1 Albumin 3.8 Globulin 4.3 H Albumin/Globulin Ratio 0.9 Urine Color Yellow Urine Clarity Clear Urine pH 8.0 Ur Specific [place] 1.010 Urine Protein Negative Urine Glucose (UA) Normal Urine Ketones Negative Urine Occult Blood Negative Urine Nitrite Negative Urine Bilirubin Negative Urine Urobilinogen Normal Ur Leukocyte Esterase Negative Urine RBC 0 SEEN Urine WBC 0 SEEN Ur Squamous Epith Cells 5-10 SEEN Urine Bacteria 1+ Urine Mucus 0 SEEN 04/06/17 04/06/17 07:30 07:30 WBC 7.3 RBC 4.12 L Hgb 13.0 Hct 38.0 MCV 92.2 MCH 31.6 MCHC 34.2 RDW 13.2 RDW Differential 43.8 Plt Count 190 MPV 9.2 Immature Gran % (Auto) 0.100 Neut % (Auto) 58.2 Lymph % (Auto) 30.9 [place] % (Auto) 7.1 Eos % (Auto) 3.2 Baso % (Auto) 0.5 Absolute Neuts (auto) 4.2 Absolute Lymphs (auto) 2.25 Total Counted Not Reportable Sodium 140 Potassium 3.7 Chloride 108 H Carbon Dioxide 26.0 Anion Gap 6 BUN 10 Creatinine 0.64 Estim Creat Clear Calc 101.40 Est GFR (MDRD) Af Amer 144 Est GFR (MDRD) Non-Af 119 BUN/Creatinine Ratio 15.5 Glucose 97 Calcium 8.9 Total Bilirubin AST ALT Alkaline Phosphatase Total Protein Albumin Globulin Albumin/Globulin Ratio Urine Color Urine Clarity Urine pH Ur Specific [place] Urine Protein Urine Glucose (UA) Urine Ketones Urine Occult Blood Urine Nitrite Urine Bilirubin Urine Urobilinogen Ur Leukocyte Esterase Urine RBC Urine WBC Ur Squamous Epith Cells Urine Bacteria Urine Mucus None Operations: None Procedures: None Summary of Care Provided: The patient is a 27 year old F with no significant past medical history other than heroin addiction, benzodiazepine use and nicotine dependence who presented to the [facility] office on 04/05/2017 requesting inpatient admission for acute opiate withdrawal. She complained of cramps in her legs. She also related that when she gets clean she has difficulty sleeping and has used Seroquel 100 mg nightly off and on. She was admitted to the hospital and the [facility] protocol for opiate withdrawal was initiated. CBC and CMP were unremarkable. UA showed no evidence of urinary tract infection. HIV and hepatitis panel were not drawn. She was started on Seroquel 100 mg nightly and slept well during her admission. hospital course was unremarkable. She was discharged on 04/08/2017 and plans on flying to [place]. She has a friend who has been clean for 5 years who has paid for her plane ticket and made arrangements for a place for her to stay and get on her feet. She was alert and oriented at the time of DC and was appropriate. She had no diarrhea, no constipation, no nausea, no vomiting and she was not restless. Vital signs at the time of discharge were temp 98, heart rate 90, blood pressure 98/63, respiratory rate 18 and she was 99% saturated on room air. The lungs are clear to auscultation and the heart had a regular rate and rhythm without murmur. She was discharged with a prescription for Seroquel 100 mg, #30, and instructed to take 1 p.o. nightly. Her friend will meet her at the airport in [place]. This note was generated with [employer] dictation software. It may contain incorrect words, spelling, and punctuation that were not noted in checking the note before signing. Discharge Activity: Return to Normal Activity Call your doctor if you observe: Fever of 101 or Higher, Shortness of breath, - - cough, nausea, diarrhea Home Medications: Medications to take at Discharge Quetiapine Fumarate [Seroquel] 100 mg PO QHS #30 tab 04/08/17 Following Prescrptions Were Given to Patient: Quetiapine Fumarate [Seroquel] 100 mg PO QHS #30 tab Primary Care Physician: Care Physician,No Primary [Primary Care Provider] - Disposition: Home Patient Condition:: Good Meaningful Use Info Meaningful Use Diagnoses (Choose all that apply): None applicable Code Visit Inpatient E&M: 69652 Disch Hosp
--- NOTE | 2017-04-08 10:40 | DS.PCM_ITS ---
Discharge Date and Diagnosis - Problem List Patient Problems: Active and Suspected Problems Opioid withdrawal (Acute) Benzodiazepine withdrawal (Acute) Anxiety and depression (Acute) Date of Admission: 04/05/17 Date of Discharge: 04/08/17 - Primary Discharge Diagnosis Active and Suspected Problems Opioid withdrawal (Acute) Benzodiazepine withdrawal (Acute) - Secondary Discharge Diagnosis Chronic Problems Insomnia (Chronic) Nicotine dependence (Chronic) Poly-drug misuser (Chronic) Anxiety and depression (Acute) Hospital Course and Treatment Imaging Results: Laboratory Tests 04/05/17 04/05/17 04/05/17 13:00 13:00 16:01 WBC 6.2 RBC 4.62 Hgb 14.1 Hct 42.4 MCV 91.8 MCH 30.5 MCHC 33.3 RDW 13.3 RDW Differential 44.2 H Plt Count 181 MPV 9.1 Immature Gran % (Auto) 0.200 Neut % (Auto) 73.8 H Lymph % (Auto) 20.0 [place] % (Auto) 3.1 Eos % (Auto) 2.6 Baso % (Auto) 0.3 Absolute Neuts (auto) 4.6 Absolute Lymphs (auto) 1.24 Total Counted Not Reportable Sodium 142 Potassium 4.1 Chloride 109 H Carbon Dioxide 25.0 Anion Gap 8 BUN 6 L Creatinine 0.70 Estim Creat Clear Calc 92.71 Est GFR (MDRD) Af Amer 130 Est GFR (MDRD) Non-Af 108 BUN/Creatinine Ratio 8.5 L Glucose 117 H Calcium 9.4 Total Bilirubin 0.40 AST 33 ALT 39 Alkaline Phosphatase 106 Total Protein 8.1 Albumin 3.8 Globulin 4.3 H Albumin/Globulin Ratio 0.9 Urine Color Yellow Urine Clarity Clear Urine pH 8.0 Ur Specific [place] 1.010 Urine Protein Negative Urine Glucose (UA) Normal Urine Ketones Negative Urine Occult Blood Negative Urine Nitrite Negative Urine Bilirubin Negative Urine Urobilinogen Normal Ur Leukocyte Esterase Negative Urine RBC 0 SEEN Urine WBC 0 SEEN Ur Squamous Epith Cells 5-10 SEEN Urine Bacteria 1+ Urine Mucus 0 SEEN 04/06/17 04/06/17 07:30 07:30 WBC 7.3 RBC 4.12 L Hgb 13.0 Hct 38.0 MCV 92.2 MCH 31.6 MCHC 34.2 RDW 13.2 RDW Differential 43.8 Plt Count 190 MPV 9.2 Immature Gran % (Auto) 0.100 Neut % (Auto) 58.2 Lymph % (Auto) 30.9 [place] % (Auto) 7.1 Eos % (Auto) 3.2 Baso % (Auto) 0.5 Absolute Neuts (auto) 4.2 Absolute Lymphs (auto) 2.25 Total Counted Not Reportable Sodium 140 Potassium 3.7 Chloride 108 H Carbon Dioxide 26.0 Anion Gap 6 BUN 10 Creatinine 0.64 Estim Creat Clear Calc 101.40 Est GFR (MDRD) Af Amer 144 Est GFR (MDRD) Non-Af 119 BUN/Creatinine Ratio 15.5 Glucose 97 Calcium 8.9 Total Bilirubin AST ALT Alkaline Phosphatase Total Protein Albumin Globulin Albumin/Globulin Ratio Urine Color Urine Clarity Urine pH Ur Specific [place] Urine Protein Urine Glucose (UA) Urine Ketones Urine Occult Blood Urine Nitrite Urine Bilirubin Urine Urobilinogen Ur Leukocyte Esterase Urine RBC Urine WBC Ur Squamous Epith Cells Urine Bacteria Urine Mucus None Operations: None Procedures: None Summary of Care Provided: The patient is a 27 year old F with no significant past medical history other than heroin addiction, benzodiazepine use and nicotine dependence who presented to the [facility] office on 04/05/2017 requesting inpatient admission for acute opiate withdrawal. She complained of cramps in her legs. She also related that when she gets clean she has difficulty sleeping and has used Seroquel 100 mg nightly off and on. She was admitted to the hospital and the [facility] protocol for opiate withdrawal was initiated. CBC and CMP were unremarkable. UA showed no evidence of urinary tract infection. HIV and hepatitis panel were not drawn. She was started on Seroquel 100 mg nightly and slept well during her admission. hospital course was unremarkable. She was discharged on 2017 and plans on flying to [place]. She has a friend who has been clean for 5 years who has paid for her plane ticket and made arrangements for a place for her to stay and get on her feet. She was alert and oriented at the time of DC and was appropriate. She had no diarrhea, no constipation, no nausea, no vomiting and she was not restless. Vital signs at the time of discharge were temp 98, heart rate 90, blood pressure 98/63, respiratory rate 18 and she was 99 % saturated on room air. The lungs are clear to auscultation and the heart had a regular rate and rhythm without murmur. She was discharged with a prescription for Seroquel 100 mg, #30, and instructed to take 1 p.o. nightly. Her friend will meet her at the airport in [place]. This note was generated with [employer] dictation software. It may contain incorrect words, spelling, and punctuation that were not noted in checking the note before signing. Discharge Activity: Return to Normal Activity Call your doctor if you observe: Fever of 101 or Higher, Shortness of breath, - - cough, nausea, diarrhea Home Medications: Medications to take at Discharge Quetiapine Fumarate [Seroquel] 100 mg PO QHS #30 tab 04/08/17 Following Prescrptions Were Given to Patient: Quetiapine Fumarate [Seroquel] 100 mg PO QHS #30 tab Primary Care Physician: Care Physician,No Primary [Primary Care Provider] - Disposition: Home Patient Condition:: Good Meaningful Use Info Meaningful Use Diagnoses (Choose all that apply): None applicable Code Visit Inpatient E&M: 38547 Disch Hosp
== END 2017-04-08 10:55 | disposition home or self-care (01) | DRG 435 ==
PROVIDERS: Admitting Provider Internal Medicine; Visit Provider Internal Medicine
DX: F11.23 Opioid dependence with withdrawal (principal); F13.239 Sedative, hypnotic or anxiolytic dependence with withdrawal, unspecified; G47.00 Insomnia, unspecified; F32.9 Major depressive disorder, single episode, unspecified; F41.9 Anxiety disorder, unspecified; F17.210 Nicotine dependence, cigarettes, uncomplicated; Z79.899 Other long term (current) drug therapy
CPT/HCPCS: 36415; 80048; 80053; 81001; 85025; 99218; 99406; G0378; G0379